=== PATIENT | male | born 2000 | race Caucasian/White ===

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

== ENCOUNTER 2018-04-04 02:01 | Day surgery (SDC) | payer BC, MEDICAID ==
[2018-04-04 03:44] LABS: BASO % 0.2 % (0.0-1.0); EOS # 0.3 10^3/uL (0.0-0.50); EOS % 2.2 % (0.0-3.0); HEMATOCRIT 42.5 % (42.0-52.0); HEMOGLOBIN 14.9 g/dl (13.5-17.5); IMMATURE GRANULOCYTE % 0.2 % (0-3.0); LYMPH # 1.6 10^3/uL (1.5-6.5); LYMPH % 12.8 % (24.0-44.0); MEAN CORPUSCULAR HEMOGLOBIN 28.1 pg (27.0-33.0); MEAN CORPUSCULAR HGB CONC 35.1 g/dl (32.0-36.5); MONO % 7.9 % (0.0-5.0); NEUTROPHILS # 9.5 10^3/uL (1.8-7.7); NEUTROPHILS % 76.7 % (36.0-66.0); PLATELET COUNT, AUTOMATED 212 10^3/uL (150-450); RED BLOOD COUNT 5.31 10^6/uL (4.30-6.10); RED CELL DISTRIBUTION WIDTH 12.6 % (11.5-14.5); WHITE BLOOD COUNT 12.3 10^3/uL (4.0-10.0)
[2018-04-04 04:05] LABS: ALBUMIN 4.2 GM/DL (3.2-5.2); ALBUMIN/GLOBULIN RATIO 1.35 (1.00-1.93); ALKALINE PHOSPHATASE 91 U/L (45-117); ALT/SGPT 32 U/L (12-78); ANION GAP 8 MEQ/L (8-16); AST/SGOT 26 U/L (7-37); BILIRUBIN,DIRECT 0.1 MG/DL (0.0-0.2); BILIRUBIN,TOTAL 0.4 MG/DL (0.2-1.0); BLOOD UREA NITROGEN 18 MG/DL (7-18); CALCIUM LEVEL 8.8 MG/DL (8.5-10.1); CARBON DIOXIDE LEVEL 26 MEQ/L (21-32); CHLORIDE LEVEL 110 MEQ/L (98-107); CREATININE FOR GFR 1.04 MG/DL (0.70-1.30); GLUCOSE, FASTING 100 MG/DL (70-100); LIPASE 98 U/L (73-393); POTASSIUM SERUM 4.2 MEQ/L (3.5-5.1); SODIUM LEVEL 144 MEQ/L (136-145); TOTAL PROTEIN 7.3 GM/DL (6.4-8.2)
[2018-04-04] MEDS ORDERED: GASTROGRAFIN SOLUTION 30ML (Q9963) As Ordered ×4 (04:06)
[2018-04-04 04:09] LABS: ETHYL ALCOHOL (ETHANOL) < 0.003 % (0.000-0.010)
[2018-04-04] MEDS: METOCLOPRAMIDE INJ 10MG/2ML VIAL (J2765) IV ×4 (04:24)
[2018-04-04] MEDS: NS 1,000 ML IV ×8 (04:24→08:08)
[2018-04-04] MEDS: MORPHINE 2 MG/ML 1ML SYRINGE (J2270) IV ×4 (04:25)
[2018-04-04] MEDS: GASTROGRAFIN SOLUTION 30ML PO ×8 (04:40→05:14)
[2018-04-04] MEDS ORDERED: ISOVUE-370 76% 100ML VIAL (Q9967) As Ordered ×4 (05:29)
[2018-04-04 06:52] LABS: APPEARANCE, URINE CLEAR (CLEAR); BACTERIA, URINE AUTO NEGATIVE (NEGATIVE); BILIRUBIN, URINE AUTO NEGATIVE (NEGATIVE); BLOOD, URINE BLOOD NEGATIVE (NEGATIVE); COLOR, URINE YELLOW (YELLOW); GLUCOSE, URINE (UA) AUTO NEGATIVE (NEGATIVE); KETONE, URINE AUTO NEGATIVE (NEGATIVE); LEUKOCYTE ESTERASE, URINE AUTO NEGATIVE (NEGATIVE); NITRITE, URINE AUTO NEGATIVE (NEGATIVE); PROTEIN, URINE AUTO NEGATIVE (NEGATIVE); RBC, URINE AUTO 0 /HPF (0-3); SQUAMOUS EPITHELIAL CELL UR AU 0 /HPF (0-6); UROBILINOGEN, URINE AUTO 0.2 mg/dL (0.0-2.0); WBC, URINE AUTO 0 /HPF (0-3)
[2018-04-04] MEDS: CIPROFLOXACIN 400 MG in APPROPRIATE DILUENT 1 EA IV ×8 (08:08→21:08)
[2018-04-04] MEDS: metroNIDAZOLE 500 MG in APPROPRIATE DILUENT 1 EA IV ×8 (08:54→21:08)
[2018-04-04] MEDS ORDERED: KETOROLAC 30 MG/ML VIAL (J1885) IV ×4 (11:30)
[2018-04-04] MEDS: LR 1,000 ML IV ×8 (11:30→19:40)
[2018-04-04] MEDS ORDERED: MORPHINE 4 MG/ML 1ML VIAL/SYRINGE (J2270) IV ×4 (11:30)
[2018-04-04] MEDS ORDERED: ROCURONIUM BROMIDE 50 MG/5 ML VIAL As Ordered ×4 (17:07)
[2018-04-04] MEDS ORDERED: dexameTHASONE 4 MG/ML 1ML VIAL (J1100) As Ordered ×4 (17:07)
[2018-04-04] MEDS ORDERED: LIDOCAINE 2% INJ 100 MG/5 ML SDV (FOR ANES.) As Ordered ×4 (17:07)
[2018-04-04] MEDS ORDERED: KETOROLAC 60 MG/2 ML VIAL (J1885) As Ordered ×4 (17:07)
[2018-04-04] MEDS ORDERED: MIDAZOLAM INJ 2 MG/2 ML VIAL (J2250) As Ordered ×4 (17:07)
[2018-04-04] MEDS ORDERED: ONDANSETRON 4MG/2ML VIAL (J2405) As Ordered ×4 (17:07)
[2018-04-04] MEDS ORDERED: PROPOFOL 200 MG/20 ML VIAL As Ordered ×4 (17:07)
[2018-04-04] MEDS ORDERED: fentaNYL 250 MCG/5 ML INJECTION (J3010) As Ordered ×4 (17:09)
[2018-04-04] MEDS: metroNIDAZOLE/NACL 500MG(5MG/ML)100 ML BAG (S0030) As Ordered ×4 (21:59)
[2018-04-04] MEDS: CIPROFLOXACIN/D5W 400 MG/200 ML BAG (J0744) As Ordered ×4 (21:59)
[2018-04-04] MEDS: BUPIVACAINE HCL 0.25% 30 ML VIAL As Ordered ×4 (22:00)
[2018-04-04] MEDS ORDERED: ONDANSETRON 4MG/2ML VIAL (J2405) IV ×4 (22:45)
[2018-04-04] MEDS ORDERED: MORPHINE 10 MG/ML 1ML VIAL (J2270) IV ×4 (22:45)
[2018-04-04] MEDS ORDERED: PERCOCET 5MG/325MG TAB PO ×4 (22:45)
[2018-04-04] MEDS ORDERED: fentaNYL 100 MCG/2 ML INJECTION (J3010) IV ×4 (22:45)
[2018-04-05] MEDS ORDERED: MORPHINE 4 MG/ML 1ML VIAL/SYRINGE (J2270) IV ×4 (00:30)
[2018-04-05] MEDS ORDERED: ACETAMINOPHEN TAB 650MG DOSE (2X325MG) PO ×4 (00:30)
[2018-04-05] MEDS: NORCO, ANEXSIA 5/325MG TABLET (HYDROcodone/ACETAMINOPHEN) PO ×8 (00:40→04:47)
[2018-04-05] MEDS: LR 1,000 ML IV ×8 (03:36)
[2018-04-05] MEDS: IBUPROFEN 600 MG TAB PO ×4 (04:46)
== END 2018-04-05 13:35 | disposition home or self-care (01) ==
LOC: M SDC 04-05 13:35 → M ED 02:01 → M SDC 10:50 → M PED 11:14
DX: K35.89 Other acute appendicitis (principal); Z88.0 Allergy status to penicillin; F90.9 Attention-deficit hyperactivity disorder, unspecified type; F91.3 Oppositional defiant disorder
CPT/HCPCS: 44970

== ENCOUNTER 2018-09-19 08:56 | Emergency (ER) | payer BC, OTHER, MEDICAID ==
[2018-09-19] MEDS: METHOCARBAMOL 500 MG TAB PO (10:33)
[2018-09-19] MEDS: KETOROLAC 60 MG/2 ML VIAL (J1885) IM (10:33)
== END 2018-09-19 11:11 | disposition home or self-care (01) ==
LOC: M ED 08:56
DX: M62.830 Muscle spasm of back (principal); J45.909 Unspecified asthma, uncomplicated; F90.9 Attention-deficit hyperactivity disorder, unspecified type; F91.3 Oppositional defiant disorder; Z88.0 Allergy status to penicillin; Z88.8 Allergy status to other drugs, medicaments and biological substances
CPT/HCPCS: J1885

== ENCOUNTER 2019-06-06 07:47 | Emergency (ER) | payer BC, OTHER ==
[~2019-06-06] VITALS: Ht 170.2 cm; Wt 90.6 kg
[~2019-06-06 07:47] MED LIST changes: +NAPR-837 PO; +NAPR-885 PO; -NAPR500T PO; +ROBA500T PO; +ZOFR4TAB14 PO; -ZOFR4TAB3 PO
[2019-06-06] MEDS ORDERED: PRED20TA PO (08:44)
[2019-06-06] MEDS ORDERED: MOBI4TAB PO (08:44)
[2019-06-06] MEDS ORDERED: ZANA4TAB PO (08:44)
[2019-06-06] MEDS ORDERED: KETOROLAC 60 MG/2 ML VIAL (J1885) IM ONE (08:45)
[2019-06-06 09:36] VITALS: BP 132/77
== END 2019-06-06 09:37 | disposition home or self-care (01) ==
LOC: M ED 07:47
DX: G89.29 Other chronic pain (principal); M54.5 Low back pain; M62.838 Other muscle spasm; J45.909 Unspecified asthma, uncomplicated; F91.3 Oppositional defiant disorder; F90.9 Attention-deficit hyperactivity disorder, unspecified type; Z88.0 Allergy status to penicillin; Z88.8 Allergy status to other drugs, medicaments and biological substances
CPT/HCPCS: 96372; 99284; J1885

== ENCOUNTER 2019-07-19 00:44 | Emergency (ER) | payer BC, OTHER ==
[~2019-07-19] VITALS: Ht 170.2 cm; Wt 97.7 kg
[2019-07-19 00:44] VITALS: BP 178/98
[~2019-07-19 00:44] MED LIST changes: +MOBI4TAB PO; +PRED20TA PO; +ZANA4TAB PO
[2019-07-19] MEDS ORDERED: IBUPROFEN 800 MG TAB PO ONE (01:30)
--- NOTE | 2019-07-20 07:57 | REP ---
RIGHT ANKLE COMPLETE: 07/19/2019. Clinical history: Trauma, twisted ankle. Findings: Four views show prominent soft tissue swelling over the anterolateral aspect of the ankle. The distal tibia is without fracture or focal lesion. Fibula is without fracture. The mortise joint symmetric and preserved with no talar dome osteochondral defect. Subtalar joints intact. No heel spurs. Calcaneus and talus unremarkable. Impression: 1. Prominent soft tissue swelling anterolateral aspect of the ankle without visible or displaced fracture, avulsion, disruption of the mortise joint or other acute finding. Electronically Signed by Huseyin Arredondo MD 07/20/2019 09:25 A
== END 2019-07-19 01:40 | disposition home or self-care (01) ==
LOC: M ED 00:44
DX: S93.401A Sprain of unspecified ligament of right ankle, initial encounter (principal); X58.XXXA Exposure to other specified factors, initial encounter; Y92.89 Other specified places as the place of occurrence of the external cause

== ENCOUNTER 2019-08-08 20:33 | Emergency (ER) | payer BC ==
[~2019-08-08] VITALS: Ht 170.2 cm; Wt 90.9 kg
[2019-08-08] MEDS ORDERED: FAMOTIDINE INJ 20MG/2ML VIAL (S0028) IVP ONE (21:00)
[2019-08-08] MEDS ORDERED: NS 1,000 ML IV ONE (21:00)
[2019-08-08] MEDS ORDERED: methylPREDNISolone INJ 125 MG/2 ML VIAL (J2930) IV ONE (21:00)
[2019-08-08] MEDS ORDERED: FAMO20TA PO (22:17)
[2019-08-08] MEDS ORDERED: PRED20TA PO (22:17)
[2019-08-08 22:18] VITALS: BP 115/76
== END 2019-08-08 22:28 | disposition home or self-care (01) ==
LOC: M ED 20:33
DX: T63.441A Toxic effect of venom of bees, accidental (unintentional), initial encounter (principal); R21 Rash and other nonspecific skin eruption; J45.909 Unspecified asthma, uncomplicated; Z88.0 Allergy status to penicillin; Z88.8 Allergy status to other drugs, medicaments and biological substances
CPT/HCPCS: 94760; 96361; 96374; 96375; 99284; J2930

== ENCOUNTER → 2019-10-18 | Outpatient (CLI) | payer BC ==
[~2019-10-18] MED LIST changes: +FAMO20TA PO
--- NOTE | 2019-10-18 18:07 | REP ---
Clinical: Left shoulder pain . Technique: Internal rotation, external rotation, and Y view. Findings: No acute fracture or dislocation. The acromioclavicular and glenohumeral joints are intact. No periarticular calcifications or degenerative changes are appreciated. Sub acromial space is normal. Surrounding soft tissues are unremarkable. Impression: Normal left shoulder radiographs. Electronically Signed by Galileo Bose MD 10/18/2019 05:58 P
--- NOTE | 2019-10-18 18:41 | REP ---
Clinical: Trauma. Fall. Technique: AP, lateral, bilateral oblique and radial head views of the left elbow. Findings: A very subtle nondisplaced fracture involving the coronoid process of the olecranon cannot definitively be excluded. Correlation and follow up examination is recommended. Impression: Subtle fracture involving the olecranon process cannot definitively be excluded and requires correlation, followup examination. Electronically Signed by Galileo Bose MD 10/18/2019 06:32 P
--- NOTE | 2019-10-18 18:42 | REP ---
Clinical: Trauma. Technique: AP, lateral, bilateral oblique views left wrist . Findings: The carpal bones, surrounding osseous structures, soft tissues, and joint spaces are normal. There is no evidence for acute fracture or dislocation. No subcutaneous emphysema or radiodense foreign body. Impression: No acute fracture or dislocation Electronically Signed by Galileo Bose MD 10/18/2019 06:33 P
== END ==
LOC: M ADAMS 16:54
PROVIDERS: ATTEND Physician Assistant Medical
DX: M79.602 Pain in left arm (principal)

== ENCOUNTER → 2020-01-16 | Outpatient (CLI) | payer BC ==
--- NOTE | 2020-01-16 16:32 | REP ---
Clinical: Trauma. Technique: AP, lateral, bilateral oblique views left wrist . Findings: The carpal bones, surrounding osseous structures, soft tissues, and joint spaces are normal. There is no evidence for acute fracture or dislocation. No subcutaneous emphysema or radiodense foreign body. Impression: No obvious acute fracture or dislocation. If the patient remains symptomatic consider reevaluation in 3-5 days with scaphoid view if necessary. Electronically Signed by Galileo Bose MD 01/16/2020 04:23 P
== END ==
LOC: M ADAMS 16:06
PROVIDERS: ATTEND Physician Assistant
DX: M25.532 Pain in left wrist (principal)

== ENCOUNTER 2020-07-29 04:17 | Emergency (ER) | payer BC ==
[~2020-07-29] VITALS: Ht 170.2 cm; Wt 96.8 kg
[2020-07-29 06:03] LABS: HEMATOCRIT 48.1 % (42.0-52.0); HEMOGLOBIN 16.3 g/dl (13.5-17.5); MEAN CORPUSCULAR HEMOGLOBIN 28.5 pg (27.0-33.0); MEAN CORPUSCULAR HGB CONC 33.9 g/dl (32.0-36.5); MEAN CORPUSCULAR VOLUME 84.2 fl (80.0-96.0); PLATELET COUNT, AUTOMATED 252 10^3/uL (150-450); RED BLOOD COUNT 5.71 10^6/uL (4.30-6.10); WHITE BLOOD COUNT 9.9 10^3/uL (4.0-10.0)
[2020-07-29 06:33] LABS: AMPHETAMINES LEVEL URINE NEGATIVE (NEGATIVE); BARBITURATES URINE NEGATIVE (NEGATIVE); BENZODIAZEPINES URINE NEGATIVE (NEGATIVE); CANNABINOIDS URINE POSITIVE (NEGATIVE); COCAINE METABOLITE URINE NEGATIVE (NEGATIVE); METHADONE URINE NEGATIVE (NEGATIVE); OPIATES URINE NEGATIVE (NEGATIVE); PHENCYCLIDINE URINE NEGATIVE (NEGATIVE)
[2020-07-29 06:47] LABS: ACETAMINOPHEN LEVEL < 2.0 UG/ML (10.0-30.0); ALBUMIN 4.4 GM/DL (3.2-5.2); ALT/SGPT 30 U/L (12-78); BILIRUBIN,DIRECT 0.1 MG/DL (0.0-0.2); BILIRUBIN,TOTAL 0.5 MG/DL (0.2-1.0); BLOOD UREA NITROGEN 13 MG/DL (7-18); CALCIUM LEVEL 9.6 MG/DL (8.5-10.1); CARBON DIOXIDE LEVEL 27 MEQ/L (21-32); CHLORIDE LEVEL 110 MEQ/L (98-107); CREATININE FOR GFR 1.12 MG/DL (0.70-1.30); ETHYL ALCOHOL (ETHANOL) < 0.003 % (0.000-0.010); GLOMERULAR FILTRATION RATE > 60.0 (>60); GLUCOSE, FASTING 104 MG/DL (70-100); POTASSIUM SERUM 4.5 MEQ/L (3.5-5.1); SALICYLATE LEVEL < 1.7 MG/DL (5.0-30.0); SODIUM LEVEL 141 MEQ/L (136-145); TOTAL PROTEIN 7.7 GM/DL (6.4-8.2)
[2020-07-29 07:16] VITALS: BP 161/90
== END 2020-07-29 07:17 | disposition home or self-care (01) ==
LOC: M ED 04:17
DX: F19.951 Other psychoactive substance use, unspecified with psychoactive substance-induced psychotic disorder with hallucinations (principal); J45.909 Unspecified asthma, uncomplicated; F90.9 Attention-deficit hyperactivity disorder, unspecified type; Z88.0 Allergy status to penicillin
CPT/HCPCS: 36415; 80048; 80076; 80307; 84443; 85027; 99284; G0480

== ENCOUNTER → 2020-08-03 | Outpatient (CLI) | payer BC ==
--- NOTE | 2020-08-03 18:34 | REP ---
INDICATION: SHOULDER PAIN post injury. COMPARISON: Comparison left shoulder radiographs are from October 18, 2019.. TECHNIQUE: Three views. FINDINGS: The left glenohumeral and acromioclavicular joints are normally aligned. Periarticular soft tissues are unremarkable. No fracture or subluxation is seen. 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 Bones, joints and soft tissues are otherwise unremarkable. IMPRESSION: Os acromiale noted. Otherwise negative radiographs of the left shoulder. No acute bony abnormality. <Electronically signed by Lan Man > 08/03/20 [id number]
== END ==
LOC: M WUC 17:30
PROVIDERS: ATTEND Physician Assistant
DX: M25.512 Pain in left shoulder (principal)

== ENCOUNTER → 2020-09-26 | Outpatient (REF) | payer BC ==
[2020-09-26 17:10] LABS: BASO # 0.1 10^3/uL (0.0-0.2); BASO % 0.5 % (0.0-1.0); EOS # 0.2 10^3/uL (0.0-0.5); EOS % 1.5 % (0.0-3.0); HEMATOCRIT 46.2 % (42.0-52.0); HEMOGLOBIN 15.4 g/dl (13.5-17.5); LYMPH # 2.7 10^3/uL (1.5-5.0); LYMPH % 23.9 % (24.0-44.0); MEAN CORPUSCULAR HEMOGLOBIN 27.9 pg (27.0-33.0); MEAN CORPUSCULAR HGB CONC 33.3 g/dl (32.0-36.5); MEAN CORPUSCULAR VOLUME 83.7 fl (80.0-96.0); MONO # 0.7 10^3/uL (0.0-0.8); MONO % 6.2 % (0.0-5.0); NEUTROPHILS # 7.5 10^3/uL (1.5-8.5); NEUTROPHILS % 67.4 % (36.0-66.0); PLATELET COUNT, AUTOMATED 280 10^3/uL (150-450); RED BLOOD COUNT 5.52 10^6/uL (4.30-6.10); WHITE BLOOD COUNT 11.1 10^3/uL (4.0-10.0)
== END ==
LOC: M SFHCADAM 13:23
PROVIDERS: ATTEND Family Medicine
DX: K52.9 Noninfective gastroenteritis and colitis, unspecified (principal)